=== PATIENT | male | born 1985 ===

== ENCOUNTER 2018-08-10 12:07 | Emergency (ER) | payer SELFPAY ==
[~2018-08-10] VITALS: Ht 167.6 cm; Wt 72.7 kg
[2018-08-10] MEDS ORDERED: TETanus/Pertussis (Acell)/Diphther VAC/PF (Tdap-Adult) 0.5ml syringe IM ONE (12:15)
[2018-08-10 12:23] VITALS: BP 178/100
== END 2018-08-10 12:33 ==
LOC: ER 12:07
DX: S06.0X1A Concussion with loss of consciousness of 30 minutes or less, initial encounter (principal); S00.81XA Abrasion of other part of head, initial encounter; F15.10 Other stimulant abuse, uncomplicated; W17.89XA Other fall from one level to another, initial encounter; Y93.39 Activity, other involving climbing, rappelling and jumping off; Y92.89 Other specified places as the place of occurrence of the external cause; Y99.8 Other external cause status
CPT/HCPCS: 90471; 90715; 99283

== ENCOUNTER 2018-09-12 15:24 | Emergency (ER) | payer MEDICAID ==
[~2018-09-12] VITALS: Ht 172.7 cm; Wt 68.2 kg
[2018-09-12 17:35] VITALS: BP 123/65
== END 2018-09-12 17:38 ==
LOC: EDBD 15:24 → ER 15:25
DX: S00.83XA Contusion of other part of head, initial encounter (principal); F15.10 Other stimulant abuse, uncomplicated; R45.1 Restlessness and agitation; Z59.0 Homelessness; W50.0XXA Accidental hit or strike by another person, initial encounter; Y93.89 Activity, other specified; Y92.89 Other specified places as the place of occurrence of the external cause; Y99.9 Unspecified external cause status
CPT/HCPCS: 36415; 99283